=== PATIENT | male | born 1965 | race Caucasian/White ===

== ENCOUNTER 2016-04-11 17:18 | Emergency (ER) | payer OTHER ==
[~2016-04-11] VITALS: Ht 175.3 cm; Wt 79.4 kg
[2016-04-11 17:22] VITALS: BP 118/84
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
[2016-04-11] MEDS ORDERED: ZOFRAN4 M2 PO (18:31)
[2016-04-11] MEDS ORDERED: CLONIDINE HCL0.1 MG PO (18:31)
== END 2016-04-11 18:34 ==
LOC: ERH 17:18
DX: F14.10 Cocaine abuse, uncomplicated (principal); F11.10 Opioid abuse, uncomplicated